=== PATIENT | female | born 1945 | race Hispanic/Latino ===

== ENCOUNTER 2017-07-02 20:19 | Emergency (ER) | payer MEDICARE, OTHER ==
[~2017-07-02 20:19] MED LIST: BIFI4CAP PO; CA C1TAB95 PO; ERGO400T3 PO; MULT-950 PO; PRAV20TA4 PO
[2017-07-02 21:05] LABS: APPEARANCE,URINE Turbid (CLEAR); BILIRUBIN,URINE Moderate (NEGATIVE); COLOR,URINE Orange (YELLOW); GLUCOSE, URINE (UA) Negative (NEGATIVE); LEUKOCYTE ESTERASE ,URINE Large (NEGATIVE); NITRATE,URINE Positive (NEGATIVE); OCCULT BLOOD,URINE Large (NEGATIVE); PROTEIN,URINE POS 1+ (NEGATIVE)
[2017-07-02 21:13] LABS: KETONES,URINE NEGATIVE (NEGATIVE)
[2017-07-02 21:21] LABS: BACTERIA,URINE Few /HPF (None Seen); WBC,URINE >100 /HPF (0-1)
[2017-07-02] MEDS ORDERED: LIDOCAINE HCL-MPF 1% 2ML VIAL ONE (21:26)
[2017-07-02] MEDS ORDERED: CEFTRIAXONE SODIUM 1 GM ONE (21:27)
== END 2017-07-02 22:06 | disposition home or self-care (01) ==
LOC: EDH 20:19
DX: N39.0 Urinary tract infection, site not specified (principal); E78.5 Hyperlipidemia, unspecified; Z79.899 Other long term (current) drug therapy; Z90.710 Acquired absence of both cervix and uterus
CPT/HCPCS: 81001; 87088; 87186; 96372; 99284; J0696; J3490

== ENCOUNTER 2017-07-07 19:02 | Emergency (ER) | payer MEDICARE, OTHER ==
[2017-07-07] MEDS ORDERED: ACETAMINOPHEN-CODEINE ELIXIR 5 ML UDCUP ONE (19:38)
[2017-07-07] MEDS ORDERED: SODIUM CHLORIDE 0.9% 500ML 500 ML IV ONE (19:39)
[2017-07-07 19:46] LABS: BASOPHILS % (AUTO) 0.3 % (0.0-5.0); EOSINOPHILS % (AUTO) 0.2 % (0.0-8.0); HEMATOCRIT 41.4 % (36-48); LYMPHOCYTES % (AUTO) 11.4 % (21.0-51.0); MEAN CORPUSCULAR HEMOGLOBIN 29.4 pg (27.0-33.0); MEAN CORPUSCULAR HGB CONC 34.2 g/dL (32.0-36.0); MEAN CORPUSCULAR VOLUME 85.8 fL (79-99); MONOCYTES % (AUTO) 9.2 % (3.0-13.0); NEUTROPHILS % (AUTO) 78.9 % (40.0-77.0); PLATELET COUNT (AUTO) 274 K/uL (130-400); RED BLOOD CELL COUNT(AUTO) 4.83 MIL/uL (4.00-5.50); RED CELL DISTRIBUTION WIDTH 14.3 % (11.0-15.5); WHITE BLOOD COUNT (AUTO) 11.8 K/uL (4.8-10.8)
[2017-07-07 19:57] LABS: CREATININE 0.9 mg/dL (0.5-1.5); POTASSIUM 3.5 mmol/L (3.5-5.1)
[2017-07-07 19:57] LABS: APPEARANCE,URINE Clear (CLEAR); BILIRUBIN,URINE Negative (NEGATIVE); COLOR,URINE Yellow (YELLOW); GLUCOSE, URINE (UA) Negative (NEGATIVE); KETONES,URINE Negative (NEGATIVE); LEUKOCYTE ESTERASE ,URINE Moderate (NEGATIVE); NITRATE,URINE Negative (NEGATIVE); OCCULT BLOOD,URINE Moderate (NEGATIVE); PH,URINE 5.5 (5.0-8.0); PROTEIN,URINE Trace (NEGATIVE); UROBILINOGEN,URINE 0.2 mg/dL (0.2-1.0)
[2017-07-07 20:01] LABS: ALBUMIN 3.1 g/dL (3.5-5.0); BILIRUBIN,TOTAL 0.5 mg/dL (0.2-1.0); TOTAL PROTEIN, SERUM 7.1 g/dL (6.0-8.3)
[2017-07-07 20:03] LABS: RBC,URINE 0-1 /HPF (0-1)
[2017-07-07 20:04] LABS: BACTERIA,URINE Rare /HPF (None Seen); MUCUS,URINE Moderate LPF (None Seen); RENAL EPITHELIAL CELLS,URINE Rare /HPF (None Seen); TRANSITIONAL EPI CELLS,URINE Few /HPF (None Seen)
[2017-07-07 20:13] LABS: OCCULT BLOOD STOOL SINGLE ONLY POSITIVE (NEGATIVE)
[2017-07-07] MEDS ORDERED: IOPAMIDOL-370 75 ML VIAL IV ONE (20:44)
== END 2017-07-07 21:40 | disposition home or self-care (01) ==
LOC: EDH 19:02
DX: K57.92 Diverticulitis of intestine, part unspecified, without perforation or abscess without bleeding (principal); E78.5 Hyperlipidemia, unspecified
CPT/HCPCS: 36415; 74177; 80053; 81001; 82270; 85025; 87046; 87205; 87324; 96360; 96361; 99285; J7040; Q9967

== ENCOUNTER 2017-07-14 15:46 | Inpatient (IN) | payer MEDICARE ==
[~2017-07-14] VITALS: Ht 172.7 cm; Wt 74.6 kg
[2017-07-14 16:21] LABS: BASOPHILS % (AUTO) 0.4 % (0.0-5.0); EOSINOPHILS % (AUTO) 0.6 % (0.0-8.0); HEMATOCRIT 43.6 % (36-48); MEAN CORPUSCULAR HGB CONC 34.3 g/dL (32.0-36.0); MEAN CORPUSCULAR VOLUME 84.7 fL (79-99); MONOCYTES % (AUTO) 10.2 % (3.0-13.0); NEUTROPHILS % (AUTO) 71.8 % (40.0-77.0); PLATELET COUNT (AUTO) 477 K/uL (130-400); RED BLOOD CELL COUNT(AUTO) 5.14 MIL/uL (4.00-5.50); RED CELL DISTRIBUTION WIDTH 14.1 % (11.0-15.5); WHITE BLOOD COUNT (AUTO) 8.5 K/uL (4.8-10.8)
[2017-07-14 16:23] LABS: APPEARANCE,URINE Clear (CLEAR); BILIRUBIN,URINE Negative (NEGATIVE); COLOR,URINE Dark Yellow (YELLOW); GLUCOSE, URINE (UA) Negative (NEGATIVE); KETONES,URINE Negative (NEGATIVE); LEUKOCYTE ESTERASE ,URINE Moderate (NEGATIVE); NITRATE,URINE Negative (NEGATIVE); OCCULT BLOOD,URINE Negative (NEGATIVE); PROTEIN,URINE Negative (NEGATIVE)
[2017-07-14 16:38] LABS: CREATININE 0.8 mg/dL (0.5-1.5); POTASSIUM 3.8 mmol/L (3.5-5.1)
[2017-07-14 16:39] LABS: INR 0.98 (0.85-1.15); PROTHROMBIN TIME 10.3 SEC (9.6-11.6)
[2017-07-14 16:40] LABS: BACTERIA,URINE Few /HPF (None Seen); RBC,URINE 0-1 /HPF (0-1)
[2017-07-14 16:42] LABS: YEAST,URINE BUDDING Few /HPF (None Seen)
[2017-07-14 16:43] LABS: SQUAMOUS EPITHELIAL CELL,UR Rare /HPF (0-2)
[2017-07-14 17:00] LABS: ALBUMIN 3.6 g/dL (3.5-5.0); BILIRUBIN,TOTAL 0.4 mg/dL (0.2-1.0); CREATINE KINASE MB 0.9 ng/mL (0.5-3.6); TOTAL PROTEIN, SERUM 7.7 g/dL (6.0-8.3)
[2017-07-14] MEDS ORDERED: BISACODYL 10 MG SUPP.RECT RC ONE (17:36)
[2017-07-14] MEDS ORDERED: MAGNESIUM CITRATE 296 ML SOLUTION ONE (17:37)
[2017-07-14] MEDS ORDERED: POLYETHYLENE GLYCOL 3350 17 GM POWD.PACK ONE (20:38)
[2017-07-14] MEDS ORDERED: METRONIDAZOLE 500MG/100ML BAG 100 ML ONE (23:37)
[2017-07-14] MEDS ORDERED: LEVOFLOXACIN 500 MG/D5W 100 ML 100 ML ONE (23:54)
[2017-07-15] MEDS ORDERED: MEROPENEM 500 MG VIAL ONE ×2 (00:12→07:58)
[2017-07-15] MEDS ORDERED: PHARMACY COMMUNICATION MISC SCH (00:30)
[2017-07-15] MEDS ORDERED: POTASSIUM CHLORIDE 10% ELIXIR 20 MEQ/15 ML UDCUP PO PRN (01:00)
[2017-07-15] MEDS ORDERED: LIDOCAINE HCL-MPF 1% 2ML VIAL IVP PRN (01:00)
[2017-07-15] MEDS ORDERED: MEROPENEM 500MG+NS 50ML 50 ML IV SCH (01:00)
[2017-07-15] MEDS ORDERED: ONDANSETRON HCL MDV 20ML 2 MG/ML VIAL IV PRN (01:00)
[2017-07-15] MEDS ORDERED: METRONIDAZOLE 500MG/100ML BAG 100 ML IV SCH (01:00)
[2017-07-15] MEDS ORDERED: HYDRALAZINE HCL 20 MG/ML VIAL IV PRN (01:00)
[2017-07-15] MEDS ORDERED: POTASSIUM CHLORIDE 20MEQ/100ML 100 ML IV PRN (01:00)
[2017-07-15] MEDS ORDERED: POTASSIUM CHLORIDE 20 MEQ ERTAB PO PRN (01:00)
[2017-07-15] MEDS ORDERED: MORPHINE SULFATE 2 MG/ML 1ML SYG IV PRN (01:00)
[2017-07-15] MEDS: METRONIDAZOLE 500MG/100ML BAG 100 ML IVPB SCH ×2 (01:00→09:00)
[2017-07-15 06:17] LABS: HEMATOCRIT 39.6 % (36-48); MEAN CORPUSCULAR HEMOGLOBIN 29.1 pg (27.0-33.0); MEAN CORPUSCULAR HGB CONC 34.5 g/dL (32.0-36.0); MEAN CORPUSCULAR VOLUME 84.5 fL (79-99); NUCLEATED RED BLOOD CELLS 0.1 % (0.0-0.19); PLATELET COUNT (AUTO) 416 K/uL (130-400); RED BLOOD CELL COUNT(AUTO) 4.68 MIL/uL (4.00-5.50); RED CELL DISTRIBUTION WIDTH 14.1 % (11.0-15.5); WHITE BLOOD COUNT (AUTO) 7.6 K/uL (4.8-10.8)
[2017-07-15 06:34] LABS: CREATININE 0.7 mg/dL (0.5-1.5); POTASSIUM 3.4 mmol/L (3.5-5.1)
[2017-07-15] MEDS ORDERED: POTASSIUM CHLORIDE 20MEQ/100ML 100 ML IV ONE (07:59)
[2017-07-15] MEDS ORDERED: METRONIDAZOLE 500MG/100ML BAG 100 ML ONE (07:59)
[2017-07-15] MEDS ORDERED: FAMOTIDINE/PF 20 MG/2 ML VIAL IV SCH (09:00)
[2017-07-15] MEDS: PANTOPRAZOLE SODIUM 40 MG TABLET.DR PO SCH (09:00)
[2017-07-15 13:15] VITALS: BP 138/73
[2017-07-15] MEDS: DEXTROSE 5 %-0.45 % NACL 1,000 ML IV SCH ×2 (13:51→23:48)
[2017-07-15] MEDS ORDERED: MORPHINE SULFATE 4 MG/1ML SYG ONE (15:42)
[2017-07-15 15:54] VITALS: BP 146/67
[2017-07-15] MEDS: MEROPENEM 500 MG VIAL IVP SCH (18:45)
[2017-07-15 20:00] VITALS: BP 108/75
[2017-07-16] VITALS: BP 141/74
[2017-07-16] MEDS: MEROPENEM 500 MG VIAL IVP SCH ×3 (01:19→17:17)
[2017-07-16] MEDS: METRONIDAZOLE 500MG/100ML BAG 100 ML IVPB SCH ×3 (01:20→17:17)
[2017-07-16 04:00] VITALS: BP 151/73
[2017-07-16 06:37] LABS: CREATININE 0.8 mg/dL (0.5-1.5); POTASSIUM 3.9 mmol/L (3.5-5.1)
[2017-07-16 08:24] VITALS: BP 150/74
[2017-07-16] MEDS: PANTOPRAZOLE SODIUM 40 MG TABLET.DR PO SCH (09:05)
[2017-07-16] MEDS ORDERED: LEVO500T2 PO (10:28)
[2017-07-16] MEDS ORDERED: METR500T PO (10:28)
[2017-07-16 11:41] VITALS: BP 154/75
[2017-07-16] MEDS ORDERED: MORPHINE SULFATE 4 MG/1ML SYG IV PRN (15:27)
[2017-07-16 16:59] VITALS: BP 149/73
[2017-07-16 20:00] VITALS: BP 151/71
[2017-07-17] VITALS: BP 153/75
[2017-07-17] MEDS: METRONIDAZOLE 500MG/100ML BAG 100 ML IVPB SCH ×2 (01:57→09:13)
[2017-07-17] MEDS: MEROPENEM 500 MG VIAL IVP SCH ×2 (01:58→09:12)
[2017-07-17 04:00] VITALS: BP 142/67
[2017-07-17 07:44] VITALS: BP 140/66
[2017-07-17] MEDS: PANTOPRAZOLE SODIUM 40 MG TABLET.DR PO SCH (09:12)
[2017-07-17 11:58] VITALS: BP 149/66
== END 2017-07-17 15:35 | disposition home or self-care (01) | DRG 392 ==
LOC: EDH 15:46 → EDHIP 22:31 → OBSVTOIN 22:31 → 3CH 07-15 13:09
PROVIDERS: ADMIT Family Medicine; ATTEND Family Medicine
DX: K57.32 Diverticulitis of large intestine without perforation or abscess without bleeding (principal); N39.0 Urinary tract infection, site not specified; E78.5 Hyperlipidemia, unspecified; Z90.710 Acquired absence of both cervix and uterus; Z88.8 Allergy status to other drugs, medicaments and biological substances
CPT/HCPCS: 36415; 74018; 74176; 80048; 80053; 81001; 82150; 82270; 82550; 82553; 84132; 85025; 85027; 85610; 85730; 93005; A4218; A6250; J1956; J2185; J2270; J3480; J3490; J7042

== ENCOUNTER 2017-08-02 11:07 | Inpatient (IN) | payer MEDICARE ==
[~2017-08-02] VITALS: Ht 172.7 cm; Wt 73.7 kg
[~2017-08-02 11:07] MED LIST changes: +LEVO500T2 PO; +METR500T PO
[2017-08-02] MEDS ORDERED: ONDANSETRON HCL MDV 20ML 2 MG/ML VIAL ONE (11:41)
[2017-08-02] MEDS ORDERED: MORPHINE SULFATE 4 MG/1ML SYG ONE (11:41)
[2017-08-02] MEDS ORDERED: SODIUM CHLORIDE 0.9% 1000ML 1,000 ML IV ONE (11:41)
[2017-08-02 11:59] LABS: BASOPHILS % (AUTO) 0.3 % (0.0-5.0); LYMPHOCYTES % (AUTO) 4.8 % (21.0-51.0); MEAN CORPUSCULAR HEMOGLOBIN 29.3 pg (27.0-33.0); MEAN CORPUSCULAR HGB CONC 33.9 g/dL (32.0-36.0); MEAN CORPUSCULAR VOLUME 86.4 fL (79-99); MONOCYTES % (AUTO) 6.5 % (3.0-13.0); NEUTROPHILS % (AUTO) 88.4 % (40.0-77.0); PLATELET COUNT (AUTO) 361 K/uL (130-400); RED BLOOD CELL COUNT(AUTO) 4.98 MIL/uL (4.00-5.50); RED CELL DISTRIBUTION WIDTH 14.9 % (11.0-15.5); WHITE BLOOD COUNT (AUTO) 19.9 K/uL (4.8-10.8)
[2017-08-02 12:22] LABS: CREATININE 0.9 mg/dL (0.5-1.5); POTASSIUM 3.3 mmol/L (3.5-5.1)
[2017-08-02 12:25] LABS: ALBUMIN 3.4 g/dL (3.5-5.0); BILIRUBIN,TOTAL 1.1 mg/dL (0.2-1.0); TOTAL PROTEIN, SERUM 7.4 g/dL (6.0-8.3)
[2017-08-02] MEDS ORDERED: IOPAMIDOL-370 75 ML VIAL IV ONE (12:46)
[2017-08-02 14:27] LABS: APPEARANCE,URINE Clear (CLEAR); BILIRUBIN,URINE Negative (NEGATIVE); COLOR,URINE Yellow (YELLOW); GLUCOSE, URINE (UA) TRACE mg/dL (NEGATIVE); KETONES,URINE Negative (NEGATIVE); LEUKOCYTE ESTERASE ,URINE Moderate (NEGATIVE); NITRATE,URINE Negative (NEGATIVE); OCCULT BLOOD,URINE Trace (NEGATIVE); PROTEIN,URINE Negative (NEGATIVE); UROBILINOGEN,URINE 0.2 mg/dL (0.2-1.0)
[2017-08-02] MEDS ORDERED: ZOSYN 3.375GM+NS 50ML 50 ML IV ONE (14:48)
[2017-08-02 14:49] LABS: RBC,URINE 0-1 /HPF (0-1)
[2017-08-02 14:50] LABS: BACTERIA,URINE Rare /HPF (None Seen); SQUAMOUS EPITHELIAL CELL,UR Rare /HPF (0-2); TRANSITIONAL EPI CELLS,URINE Few /HPF (None Seen); YEAST,URINE BUDDING Few /HPF (None Seen)
[2017-08-02] MEDS ORDERED: METRONIDAZOLE 500MG/100ML BAG 100 ML ONE (16:06)
[2017-08-02 17:35] VITALS: BP 145/61
[2017-08-02] MEDS ORDERED: ACETAMINOPHEN 325 MG TAB PO PRN (19:15)
[2017-08-02 19:34] VITALS: BP 146/69
[2017-08-02] MEDS: ZOSYN 3.375GM+NS 50ML 50 ML IV SCH (23:06)
[2017-08-02 23:33] VITALS: BP 129/67
[2017-08-02] MEDS ORDERED: HYDRALAZINE HCL 20 MG/ML VIAL IV PRN (23:45)
[2017-08-02] MEDS ORDERED: POTASSIUM CHLORIDE 10% ELIXIR 20 MEQ/15 ML UDCUP PO PRN (23:45)
[2017-08-02] MEDS: METRONIDAZOLE 500MG/100ML BAG 100 ML IV SCH (23:53)
[2017-08-03] MEDS: MORPHINE SULFATE 4 MG/1ML SYG IVP PRN ×2 (02:19→09:14)
[2017-08-03] MEDS: SODIUM CHLORIDE 0.9% 1000ML 1,000 ML IV SCH ×4 (02:20→19:54)
[2017-08-03 04:00] VITALS: BP 133/65
[2017-08-03 04:16] LABS: BASOPHILS % (AUTO) 0.4 % (0.0-5.0); EOSINOPHILS % (AUTO) 0.2 % (0.0-8.0); HEMATOCRIT 36.5 % (36-48); LYMPHOCYTES % (AUTO) 6.1 % (21.0-51.0); MEAN CORPUSCULAR HEMOGLOBIN 29.2 pg (27.0-33.0); MEAN CORPUSCULAR HGB CONC 33.6 g/dL (32.0-36.0); MEAN CORPUSCULAR VOLUME 86.8 fL (79-99); MONOCYTES % (AUTO) 7.3 % (3.0-13.0); PLATELET COUNT (AUTO) 290 K/uL (130-400); RED CELL DISTRIBUTION WIDTH 14.9 % (11.0-15.5); WHITE BLOOD COUNT (AUTO) 18.5 K/uL (4.8-10.8)
[2017-08-03 04:25] LABS: CREATININE 0.8 mg/dL (0.5-1.5); POTASSIUM 3.4 mmol/L (3.5-5.1)
[2017-08-03] MEDS: ZOSYN 3.375GM+NS 50ML 50 ML IV SCH ×3 (06:48→23:18)
[2017-08-03 07:43] VITALS: BP 138/71
[2017-08-03] MEDS: METRONIDAZOLE 500MG/100ML BAG 100 ML IV SCH ×2 (08:57→16:30)
[2017-08-03] MEDS: PANTOPRAZOLE 40 MG/VIAL IVP SCH (08:57)
[2017-08-03 11:14] VITALS: BP 126/59
[2017-08-03 16:28] VITALS: BP 137/62
[2017-08-03] MEDS: LIDOCAINE HCL-MPF 1% 2ML VIAL IVP PRN ×2 (16:49→19:59)
[2017-08-03] MEDS: POTASSIUM CHLORIDE 20MEQ/100ML 100 ML IV PRN ×2 (16:49→20:00)
[2017-08-03 19:31] VITALS: BP 137/62
[2017-08-03] MEDS ORDERED: SODIUM CHLORIDE 0.9% 500ML 500 ML IV ONE (19:37)
[2017-08-03 23:34] VITALS: BP 151/76
[2017-08-04] MEDS: METRONIDAZOLE 500MG/100ML BAG 100 ML IV SCH ×3 (00:13→21:45)
[2017-08-04] MEDS: ONDANSETRON HCL MDV 20ML 2 MG/ML VIAL IVP PRN (01:38)
[2017-08-04 03:39] VITALS: BP 139/63
[2017-08-04 04:19] LABS: BASOPHILS % (AUTO) 0.3 % (0.0-5.0); EOSINOPHILS % (AUTO) 1.5 % (0.0-8.0); LYMPHOCYTES % (AUTO) 7.8 % (21.0-51.0); MEAN CORPUSCULAR HGB CONC 33.4 g/dL (32.0-36.0); MEAN CORPUSCULAR VOLUME 86.8 fL (79-99); MONOCYTES % (AUTO) 7.2 % (3.0-13.0); NEUTROPHILS % (AUTO) 83.2 % (40.0-77.0); PLATELET COUNT (AUTO) 280 K/uL (130-400); RED BLOOD CELL COUNT(AUTO) 4.15 MIL/uL (4.00-5.50); RED CELL DISTRIBUTION WIDTH 14.9 % (11.0-15.5); WHITE BLOOD COUNT (AUTO) 13.2 K/uL (4.8-10.8)
[2017-08-04 04:34] LABS: CREATININE 0.7 mg/dL (0.5-1.5); POTASSIUM 3.5 mmol/L (3.5-5.1)
[2017-08-04] MEDS: SODIUM CHLORIDE 0.9% 1000ML 1,000 ML IV SCH ×2 (04:38→15:06)
[2017-08-04] MEDS: POTASSIUM CHLORIDE 20MEQ/100ML 100 ML IV PRN (06:18)
[2017-08-04] MEDS: LIDOCAINE HCL-MPF 1% 2ML VIAL IVP PRN (06:18)
[2017-08-04] MEDS: ZOSYN 3.375GM+NS 50ML 50 ML IV SCH ×2 (06:33→15:06)
[2017-08-04 08:00] VITALS: BP 155/79
[2017-08-04] MEDS: PANTOPRAZOLE 40 MG/VIAL IVP SCH (09:55)
[2017-08-04 11:49] VITALS: BP 143/64
[2017-08-04] MEDS: CALCIUM 500 + VITAMIN D 200 TABLET PO SCH (12:00)
[2017-08-04 15:49] VITALS: BP 150/65
[2017-08-04] MEDS ORDERED: CALCIUM 600 + VITAMIN D 400 TABLET PO ONE ×2 (16:39→16:51)
[2017-08-04 20:00] VITALS: BP 163/63
[2017-08-04] MEDS: ATORVASTATIN CALCIUM 10 MG TABLET PO SCH (21:42)
[2017-08-04] MEDS: POTASSIUM CHLORIDE 20 MEQ ERTAB PO PRN ×2 (21:42→21:43)
[2017-08-04 23:56] VITALS: BP 158/73
[2017-08-05 04:00] VITALS: BP 131/67
[2017-08-05 04:30] LABS: BASOPHILS % (AUTO) 0.2 % (0.0-5.0); EOSINOPHILS % (AUTO) 3.8 % (0.0-8.0); HEMATOCRIT 34.8 % (36-48); LYMPHOCYTES % (AUTO) 8.8 % (21.0-51.0); MEAN CORPUSCULAR HGB CONC 36.2 g/dL (32.0-36.0); MEAN CORPUSCULAR VOLUME 85.7 fL (79-99); MONOCYTES % (AUTO) 9.3 % (3.0-13.0); NEUTROPHILS % (AUTO) 77.9 % (40.0-77.0); PLATELET COUNT (AUTO) 298 K/uL (130-400); RED BLOOD CELL COUNT(AUTO) 4.06 MIL/uL (4.00-5.50); RED CELL DISTRIBUTION WIDTH 14.3 % (11.0-15.5); WHITE BLOOD COUNT (AUTO) 8.9 K/uL (4.8-10.8)
[2017-08-05 04:31] LABS: CREATININE 0.6 mg/dL (0.5-1.5); POTASSIUM 3.6 mmol/L (3.5-5.1)
[2017-08-05] MEDS: SODIUM CHLORIDE 0.9% 1000ML 1,000 ML IV SCH ×2 (04:54→21:22)
[2017-08-05] MEDS: POTASSIUM CHLORIDE 20 MEQ ERTAB PO PRN ×3 (06:09→23:46)
[2017-08-05] MEDS: METRONIDAZOLE 500MG/100ML BAG 100 ML IV SCH ×3 (06:09→21:21)
[2017-08-05] MEDS: VANCOMYCIN HCL 250MG=5ML PO SCH ×8 (06:45→23:48)
[2017-08-05] MEDS ORDERED: COMPOUND PO MISCELLANEOUS 1 EACH MISC MISC PRN (07:45)
[2017-08-05 08:00] VITALS: BP 127/78
[2017-08-05] MEDS: ERGOCALCIFEROL 400 UNIT PO SCH (09:00)
[2017-08-05] MEDS: MULTIVITAMIN TABLET PO SCH (10:54)
[2017-08-05] MEDS: PANTOPRAZOLE 40 MG/VIAL IVP SCH (10:54)
[2017-08-05 11:40] VITALS: BP 146/73
[2017-08-05] MEDS ORDERED: PHARMACY COMMUNICATION MISC SCH ×2 (13:00)
[2017-08-05 15:56] VITALS: BP 155/82
[2017-08-05 20:00] VITALS: BP 156/86
[2017-08-05] MEDS: ATORVASTATIN CALCIUM 10 MG TABLET PO SCH (21:18)
[2017-08-05] MEDS: ONDANSETRON HCL MDV 20ML 2 MG/ML VIAL IVP PRN (21:20)
[2017-08-05 23:56] VITALS: BP 150/65
[2017-08-06 04:00] VITALS: BP 141/54
[2017-08-06] MEDS: METRONIDAZOLE 500MG/100ML BAG 100 ML IV SCH ×3 (05:10→22:34)
[2017-08-06] MEDS: VANCOMYCIN HCL 250MG=5ML PO SCH ×8 (06:12→22:35)
[2017-08-06 08:15] VITALS: BP 159/78
[2017-08-06] MEDS: ONDANSETRON HCL MDV 20ML 2 MG/ML VIAL IVP PRN (08:37)
[2017-08-06] MEDS: ERGOCALCIFEROL 400 UNIT PO SCH (10:00)
[2017-08-06 10:20] LABS: HEMATOCRIT 41.3 % (36-48); MEAN CORPUSCULAR HEMOGLOBIN 29.2 pg (27.0-33.0); MEAN CORPUSCULAR VOLUME 85.7 fL (79-99); PLATELET COUNT (AUTO) 345 K/uL (130-400); RED BLOOD CELL COUNT(AUTO) 4.82 MIL/uL (4.00-5.50); RED CELL DISTRIBUTION WIDTH 14.8 % (11.0-15.5); WHITE BLOOD COUNT (AUTO) 6.4 K/uL (4.8-10.8)
[2017-08-06] MEDS: MULTIVITAMIN TABLET PO SCH (10:31)
[2017-08-06] MEDS: PANTOPRAZOLE SODIUM 40 MG TABLET.DR PO SCH (10:31)
[2017-08-06] MEDS ORDERED: CALCIUM 600 + VITAMIN D 400 TABLET PO ONE (10:45)
[2017-08-06] MEDS: CALCIUM 500 + VITAMIN D 200 TABLET PO SCH (10:48)
[2017-08-06 12:07] VITALS: BP 146/85
[2017-08-06 16:19] VITALS: BP 136/72
[2017-08-06 19:35] VITALS: BP 151/68
[2017-08-06] MEDS: SODIUM CHLORIDE 0.9% 1000ML 1,000 ML IV SCH (20:04)
[2017-08-06] MEDS: ATORVASTATIN CALCIUM 10 MG TABLET PO SCH (20:05)
[2017-08-07 00:20] VITALS: BP 143/71
[2017-08-07 04:42] VITALS: BP 154/79
[2017-08-07] MEDS: METRONIDAZOLE 500MG/100ML BAG 100 ML IV SCH ×2 (06:11→14:12)
[2017-08-07 08:09] VITALS: BP 169/86
[2017-08-07] MEDS ORDERED: METR500T PO (09:21)
[2017-08-07] MEDS: CALCIUM 500 + VITAMIN D 200 TABLET PO SCH ×3 (10:00→17:00)
[2017-08-07] MEDS: ERGOCALCIFEROL 400 UNIT PO SCH (10:00)
[2017-08-07] MEDS: PANTOPRAZOLE SODIUM 40 MG TABLET.DR PO SCH (10:28)
[2017-08-07] MEDS: MULTIVITAMIN TABLET PO SCH (10:28)
[2017-08-07] MEDS: ONDANSETRON HCL MDV 20ML 2 MG/ML VIAL IVP PRN (10:28)
[2017-08-07 11:53] VITALS: BP 148/79
[2017-08-07] MEDS: VANCOMYCIN HCL 250MG=5ML PO SCH ×4 (14:12→17:44)
[2017-08-07 16:45] VITALS: BP 153/68
== END 2017-08-07 17:55 | disposition home or self-care (01) | DRG 372 ==
LOC: EDH 11:07 → OBSVTOIN 15:30 → EDHIP 15:30 → 3BH 17:42
PROVIDERS: ADMIT Internal Medicine; ATTEND Internal Medicine
DX: A04.72 Enterocolitis due to Clostridium difficile, not specified as recurrent (principal); N39.0 Urinary tract infection, site not specified; K57.92 Diverticulitis of intestine, part unspecified, without perforation or abscess without bleeding; E78.5 Hyperlipidemia, unspecified; I10 Essential (primary) hypertension; D72.829 Elevated white blood cell count, unspecified; Z88.8 Allergy status to other drugs, medicaments and biological substances
CPT/HCPCS: 36415; 74177; 80048; 80053; 81001; 83605; 83690; 84132; 85025; 85027; 87046; 87507; A4218; C9113; J2270; J2543; J3370; J3480; J3490; J7030; J7040; Q9967

== ENCOUNTER 2023-02-17 16:00 | Emergency (ER) | payer MEDICARE ==
[~2023-02-17] VITALS: Ht 172.7 cm; Wt 74.8 kg
[2023-02-17 16:46] LABS: APPEARANCE,URINE CLOUDY (CLEAR); BILIRUBIN,URINE NEGATIVE (NEGATIVE); COLOR,URINE LIGHT-YELLOW (YELLOW); GLUCOSE, URINE (UA) NEGATIVE (NEGATIVE); KETONES,URINE NEGATIVE (NEGATIVE); LEUKOCYTE ESTERASE ,URINE 500 Leu/uL (NEGATIVE); NITRATE,URINE NEGATIVE (NEGATIVE); OCCULT BLOOD,URINE LARGE (NEGATIVE); PROTEIN,URINE 10 mg/dL (NEGATIVE); UROBILINOGEN,URINE 0.2 mg/dL (0.2-1.0)
[2023-02-17 16:52] LABS: ADD UA MICROSCOPIC YES
[2023-02-17 16:56] LABS: BACTERIA,URINE FEW /HPF (None Seen); NON-SQUAMOUS EPITHELIAL CELL 2 /HPF (0-2); RBC,URINE 26-50 /HPF (0-1); SQUAMOUS EPITHELIAL CELL,UR MOD /HPF (0-2); WBC,URINE >100 /HPF (0-1)
[2023-02-17] MEDS ORDERED: PHEN-847 PO (17:23)
[2023-02-17] MEDS ORDERED: MACR100 PO (17:23)
[2023-02-17] MEDS ORDERED: IBUP-2070 PO (17:23)
[2023-02-17] MEDS ORDERED: NITROFURANTOIN MONOHYD/M-CRYST 100 MG CAPSULE PO ONE (17:30)
[2023-02-17] MEDS ORDERED: PHENAZOPYRIDINE HCL 200 MG TABLET PO ONE (17:30)
[2023-02-17 17:35] VITALS: BP 177/80; PULSE 87; RESP 16; O2SAT 97
== END 2023-02-17 17:56 | disposition home or self-care (01) ==
LOC: EDH 16:00
DX: N39.0 Urinary tract infection, site not specified (principal); R03.0 Elevated blood-pressure reading, without diagnosis of hypertension; E78.00 Pure hypercholesterolemia, unspecified; Z88.1 Allergy status to other antibiotic agents
CPT/HCPCS: 81001; 87088